=== PATIENT | female | born 2000 | race Hispanic/Latino ===

== ENCOUNTER 2018-01-06 00:41 | Day surgery (SDC) | payer OTHER ==
[2018-01-06 01:24] VITALS: BMI 26.9
[2018-01-06 01:25] VITALS: BP 110/58; TEMP 98.9
--- NOTE | 2018-01-06 02:08 | PDOC.LDHP ---
Labor and Delivery H&P Chief complaint: abdominal pain, other (N/V) HPI: 17 yo G1 @ 23.5 weeks by LMP c/w 20 wk US here with complaint of n/v for 1 week. She states that for the past 48 hours she has had multiple episodes of vomiting which became progressively worse over the past 24 hours. She has associated epigastric pain. She denies contractions, loss of fluid, vaginal bleeding, or decreased movement. has been uncomplicated to date. She denies symptoms such dizziness or heart palpitation. Current gestational age (weeks): 23 (23.5) Due date: 04/30/18 Dating criteria: last menstrual period Grav: 1 Current complications: none Current medications: pre- vitamins Social history: none - Physical Exam Vital signs reviewed and normal: yes General: NAD, resting Heart: RRR Lungs: CTAB Abdomen: gravid Extremeties: no edema FHT: category 1 [place] contractions every: none - OB Labs Blood type: unknown RH: unknown Antibody Screen: unknown HIV: unknown RPR: unknown HEPSAg: unknown 1 hour GCT: unknown GBS: unknown - Assessment Gastroenteritis - Plan -: Gastroenteritis, likely viral in etiology. Pt does not appear to be dehydrated given normal vitals. Will get BMP to verify pt does not have DEBORAH. Continuous monitoring while labs are pending. Plan to give trial of oral hydration with zofran PRN to help control n/v. <Julius Beltran - Last Filed: 01/06/18 02:04> <Parth Rae - Last Filed: 01/06/18 07:06> Allergies/Adverse Reactions: Allergies Allergy/AdvReac Type Severity Reaction Status Date / Time No Known Allergies Allergy Verified 01/06/18 01:22 Attending Addendum - Attending Addendum Date/Time: 01/06/18 0703 I personally evaluated the patient and discussed the management with Dr. beltran I agree with the History, Examination, Assessment and Plan documented above with any addition or exceptions noted below. <Parth Rae - Last Filed: 01/06/18 07:06> Review of Systems - Review of Systems Constitutional: reports: no symptoms reported EENTM: reports: no symptoms reported Respiratory: reports: no symptoms reported Cardiology: reports: no symptoms reported Gastrointestinal/Abdominal: reports: vomiting Genitourinary Symptoms: reports: no symptoms reported Musculoskeletal: reports: no symptoms reported Skin: reports: no symptoms reported Hematologic/Lymphatic: reports: no symptoms reported <Parth Rae - Last Filed: 01/06/18 07:06>
[2018-01-06] MEDS ORDERED: Ondansetron ODT 8 MG TAB PO PRN (02:11)
[2018-01-06 03:53] LABS: Anion Gap 9 mmol/L (10-20); BUN (Urea Nitrogen) 7 mg/dL (8.4-21.0); Calc. Creatinine Clearance 157 mL/min (70-130); Calcium 8.5 mg/dL (7.8-10.44); Carbon Dioxide 25 mmol/L (22-29); Chloride 103 mmol/L (98-107); Estimated GFR-MDRD Greater than 90; Glucose 86 mg/dL (70-105); Potassium 3.2 mmol/L (3.5-5.1); Sodium 134 mmol/L (136-145)
== END 2018-01-06 04:15 | disposition home or self-care (01) ==
LOC: L&D/OP 00:41
PROVIDERS: ATTEND Student in an Organized Health Care Education/Training Program
DX: O21.2 Late vomiting of pregnancy (principal); O99.89 Other specified diseases and conditions complicating pregnancy, childbirth and the puerperium; R10.13 Epigastric pain; O99.612 Diseases of the digestive system complicating pregnancy, second trimester; K52.9 Noninfective gastroenteritis and colitis, unspecified; Z3A.23 23 weeks gestation of pregnancy; Z79.899 Other long term (current) drug therapy
CPT/HCPCS: 36415; 80048; 99282

== ENCOUNTER 2018-05-01 20:49 | Inpatient (IN) | payer OTHER ==
[~2018-05-01 20:49] MED LIST: Bupivacaine/Epinephrine 0.25% 30 ML VIAL ONE
[2018-05-01 21:35] VITALS: BMI 31.9
--- NOTE | 2018-05-01 21:57 | PDOC.FPROB ---
Addendum entered and electronically signed by Randy Caballero MD 05/01/18 23:46 : Pt had SVE again at 1115 with some change at 4.5/80/-3. Pt reports increased pain with contractions. Strip Cat 1. A/P- will recheck cervix in 1.5 hours and admit if showing continued change. Will DC home with PCP f/u if not. -PO hydration -fentanyl one for pain Original Note: FMR OB H&P: HPI - History of Present Illness Chief Complaint: contractions History of Present Illness: 17yo G1 at 39.4 weeks by LMP confirmed by 1st trimester US, presenting for contractions that started yesterday evening q10min. They have since increased in severity and are every 6min per patient. No vaginal bleeding/discharge/loss of fluid. Reports good mvt. No headaches or changes in vision. Primary Care Physician: Clinic- Isela Cortez MD FMR OB H&P: Current - Care : 1 Para: 0 Gestational age: 39.4 Due date: 05/04/2018 Dating Criteria: LMP confirmed by 1st trimester US - OB Labs Blood type: A RH: negative Antibody Screen: negative HIV: negative RPR: negative HepBsAg: negative Rubella: immune Chlamydia: positive (s/p azithromycine and negative Cure test) GBS: unknown - First Trimester Ultrasound First trimester: normal, confirmed dating by LMP FMR OB H&P: History - Past Medical History PMH: none - OB History OB History: G1 - Surgical History Sx History: none - Social History Social History: Smoking- denies, EtOH- denies, drugs- denies - Family History Family History: none FMR OB H&P: Medications - Current Home Medications: Medication Instructions Recorded Confirmed Type Vit37/Iron/Folic Acid 1 tablet PO DAILY 01/06/18 05/01/18 History [[place] Chewable Tablet] Allergies/Adverse Reactions: Allergies Allergy/AdvReac Type Severity Reaction Status Date / Time No Known Allergies Allergy Verified 05/01/18 21:33 FMR OB H&P: ROS - Review of Systems General: denies: fever/chills Eyes: denies: eye pain, vision changes, floaters ENT: denies: nasal congestion Cardiovascular: denies: chest pain, palpitation, other Respiratory: denies: cough Gastrointestinal: reports: cramping. denies: abdominal pain Genitourinary (Female): reports: contractions. denies: vaginal discharge, vaginal bleeding Musculoskeletal: denies: tenderness, decrease range of motion Neurologic: denies: syncope FMR OB H&P: Vital Signs - Maternal Vital signs: Vital Signs - First Documented Temp Pulse Resp BP 98.9 F 89 20 110/68 05/01/18 21:31 05/01/18 21:31 05/01/18 21:31 05/01/18 21:31 - Heart Tones Baseline: 150 Variability: moderate Acceleration: present Deceleration: absent Category: category 1 [place] contractions every: 5-8min FMR OB H&P: Physical Exam - Physical Exam General: NAD, awake, alert and oriented HEENT: normocephalic and atraumatic, EOMI, MMM Chest: non-tender to palpation Heart: RRR, normal S1/S2 General: CTAB, good air movement Abdomen: gravid Neurological: sensation to pain,touch and proprioception grossly normal Skin: no rash, good tugor Lymphatic: no unusual bruising or bleeding, no purpura Psychiatric: intact recent and remote memory, good judgement and insight - Pelvic Exam SVE: 3/80/-3 FMR OB H&P: A/P - Problem List (1) Uterine contractions during Current Visit: Yes Status: Acute Code(s): O62.2 - OTHER UTERINE INERTIA (2) and not yet delivered in third trimester Current Visit: Yes Status: Acute Code(s): Z34.93 - ENCNTR FOR SUPRVSN OF NORMAL PREG, UNSP, THIRD TRIMESTER Disposition: 17yo G1 at 39.4 weeks EGA presenting with contractions with SVE at 3/80/-3. -will PO hydrate -recheck cervix in 2 hours for change, will admit if change, if no change will discharge with PCP f/u Attending Addendum - Attending Addendum Date/Time: 05/02/1818 I personally evaluated the patient and discussed the management with Dr. Caballero. I agree with the History, Examination, Assessment and Plan documented above.
[2018-05-01] MEDS ORDERED: diphenhydrAMINE 25 MG CAP PO SCH (23:00)
[2018-05-01] MEDS ORDERED: Acetaminophen 325 MG TAB PO SCH (23:00)
[2018-05-01] MEDS ORDERED: Fentanyl 100 MCG/2 ML VIAL SLOW IVP SCH (23:46)
[2018-05-02] MEDS ORDERED: Ondansetron HCl/PF 4 MG/2 ML Vial IVP PRN ×3 (01:54→04:49)
[2018-05-02] MEDS ORDERED: Promethazine HCl 25 MG/ML VIAL IM PRN ×3 (01:54→04:49)
[2018-05-02] MEDS ORDERED: Butorphanol Tartrate 1 MG/ML VIAL SLOW IVP PRN (01:58)
[2018-05-02 02:05] LABS: Hemoglobin 12.7 g/dL (12.0-16.0); Mean Corpuscular HGB CONC 33.7 g/dL (32.0-36.0); Mean Corpuscular Hemoglobin 28.2 pg (25.0-35.0); Mean Corpuscular Volume 83.9 fL (78.0-98.0); Mean Platelet Volume 9.8 fL (7.4-10.4); Platelet Count 244 thou/uL (130-400); RBC Distribution Width 15.1 % (11.5-14.5); Red Blood Cell (RBC) Count 4.49 mill/uL (4.00-5.20); White Blood Cell (WBC) Count 11.8 thou/uL (4.8-10.8)
[2018-05-02] MEDS ORDERED: DISCONTINUE ALL PREVIOUS NARCOTICS FS SCH (02:15)
[2018-05-02] MEDS ORDERED: Bupivacaine 0.5% 20 ML, fentaNYL Citrate/PF 400 MCG in Sodium Chloride 0.9% 72 ML EPIDURAL SCH (02:15)
[2018-05-02] MEDS: Lactated Ringer's 1,000 ML IV SCH ×3 (02:16→19:27)
--- NOTE | 2018-05-02 02:18 | PDOC.LDPN ---
Labor & Delivery Progress Note - Subjective Subjective: painful contractions - Objective Vital signs reviewed and normal: yes General: NAD, resting Dilation: 5 Effacement: 90% Station: -3 FHT: category 1 Resuscitative measures: maternal IV fluids - Assessment (1) Uterine contractions during Code(s): O62.2 - OTHER UTERINE INERTIA Current Visit: Yes Status: Acute (2) and not yet delivered in third trimester Code(s): Z34.93 - ENCNTR FOR SUPRVSN OF NORMAL PREG, UNSP, THIRD TRIMESTER Current Visit: Yes Status: Acute Plan: continue plan of care -: pt comfortable with some pain with contractions. Stadol prn for pain. Pt wishes to have epidural and has seen the educational video -cervical checks q2hr -IV LR 125/hr -stadol prn
[2018-05-02 02:58] LABS: HBSAg Index 0.14 S/CO (0-0.99); Hep B Surf Ag Non-Reactive S/CO (NonReactive)
[2018-05-02] MEDS ORDERED: Naloxone HCl 0.4 mg/ml Vial IVP PRN ×4 (04:48→04:49)
[2018-05-02] MEDS ORDERED: Acetaminophen 325 MG TAB PO PRN ×2 (04:48→04:49)
[2018-05-02] MEDS ORDERED: diphenhydrAMINE 50 MG/ML VIAL IVP PRN ×2 (04:48→04:49)
[2018-05-02] MEDS ORDERED: Eucerin (Mineral Oil/Petrolatum,White) 30 gm Jar TOP PRN ×2 (04:48→04:49)
[2018-05-02] MEDS ORDERED: ePHEDrine/0.9% NaCl/PF SYRINGE 50 mg/10 ml SLOW IVP PRN ×2 (04:48→04:49)
[2018-05-02] MEDS ORDERED: Lactated Ringer's 500 ML IV PRN ×2 (04:48→04:49)
[2018-05-02] MEDS ORDERED: fentaNYL Citrate/PF 400 MCG, Bupivacaine 0.5% 20 ML in Sodium Chloride 0.9% 72 ML EPIDURAL SCH (05:00)
[2018-05-02] MEDS ORDERED: Communication Order-Pharmacy FS SCH ×2 (05:00)
[2018-05-02 05:02] LABS: Syphilis Antibody Nonreactive (Nonreactive); Syphilis Antibody Index 0.06 S/CO (<1.00 Non-Reactive)
--- NOTE | 2018-05-02 06:11 | PDOC.LDPN ---
Labor & Delivery Progress Note - Subjective Subjective: comfortable (Pt has epidural in place) - Objective Vital signs reviewed and normal: yes General: NAD SVE: 5/80/-3 per nurse @ 0451 FHT: category 1 [place] contractions every: 2-4 min - Assessment (1) Term Code(s): Z34.80 - ENCOUNTER FOR SUPRVSN OF NORMAL , UNSP TRIMESTER Current Visit: Yes Status: Acute Plan: continue plan of care
--- NOTE | 2018-05-02 07:28 | PDOC.LDPN ---
Labor & Delivery Progress Note - Subjective Subjective: comfortable - Objective Vital signs reviewed and normal: yes General: NAD, resting Uterine fundus: non tender SVE: @ [address] Cortez Dilation: 6 Effacement: 90% Station: -3 FHT: category 1, variability present [place] contractions every: 2-4 minutes - Assessment (1) and not yet delivered in third trimester Code(s): Z34.93 - ENCNTR FOR SUPRVSN OF NORMAL PREG, UNSP, THIRD TRIMESTER Current Visit: Yes Status: Acute Comment: 17 y/o @ 39.5 WGA here in labor SVE: /-3, bulging bag Ctx: q2-[address] -Will continue supportive care with no changes at this time -If pt doesn't make any further change by next cervical check will AROM Plan: continue plan of care
--- NOTE | 2018-05-02 09:11 | PDOC.EVN ---
Event Note - Event Note Event Note: 17 yo LAF G1 at 39 weeks admitted in labor. Comfortable with epidural in place. Last exam 6 cm. Fhts stable. Ucs q 2-4 min. Plan: watch progress, augment if needed.
--- NOTE | 2018-05-02 09:25 | PDOC.LDPN ---
Labor & Delivery Progress Note - Subjective Subjective: comfortable - Objective Vital signs reviewed and normal: yes General: NAD, resting Uterine fundus: palpable contractions SVE: @ [address] Cortez Dilation: 6.5 Effacement: 90% Station: -2 FHT: category 1, variability present [place] contractions every: 2-3 minutes AROM: clear fluid - Assessment (1) and not yet delivered in third trimester Code(s): Z34.93 - ENCNTR FOR SUPRVSN OF NORMAL PREG, UNSP, THIRD TRIMESTER Current Visit: Yes Status: Acute Comment: 17 y/o @ 39.5 WGA here in labor SVE: 6.5/90/-2, AROM Ctx: q2-[address] -Will continue supportive care -Will monitor contraction pattern over the next hour and consider pitocin at that time if needed. Plan: continue plan of care <Isela Cortez - Last Filed: 05/02/18 09:23> Attending Addendum - Attending Addendum Date/Time: 05/02/18 2010 I personally evaluated the patient and discussed the management with Dr. Cortez. I agree with the Assessment and Plan. <Yehuda Olivier - Last Filed: 05/02/18 13:39>
--- NOTE | 2018-05-02 10:43 | PDOC.LDPN ---
Labor & Delivery Progress Note - Subjective Subjective: comfortable, vaginal pressure - Objective Vital signs reviewed and normal: yes General: NAD Uterine fundus: palpable contractions SVE: @ [address] Cortez Dilation: 7 Effacement: 100% Station: 0 FHT: category 1, variability present [place] contractions every: 2-3 minutes IUPC placed: yes - Assessment (1) and not yet delivered in third trimester Code(s): Z34.93 - ENCNTR FOR SUPRVSN OF NORMAL PREG, UNSP, THIRD TRIMESTER Current Visit: Yes Status: Acute Comment: 17 y/o @ 39.5 WGA here in labor SVE: 7/100/0, IUPC placed Ctx: q2-[address] -Will start pitocin and titrate to adequate contractions Plan: pitocin for augmentation <Isela Cortez - Last Filed: 05/02/18 10:41> Attending Addendum - Attending Addendum Date/Time: 05/02/18 1340 I personally evaluated the patient and discussed the management with Dr. Cortez. I agree with the Assessment and Plan. <Yehuda Olivier - Last Filed: 05/02/18 13:41>
[2018-05-02] MEDS ORDERED: NS w/ Oxytocin 10 units 500 ML IV SCH (10:45)
[2018-05-02] MEDS ORDERED: NS w/ Oxytocin 10 units 500 ML ONE (10:48)
[2018-05-02] MEDS ORDERED: NS / Oxytocin 40 units/1000ml 1,000 ML ONE (11:50)
[2018-05-02] MEDS ORDERED: Lidocaine 1% (PF) 30 ML VIAL ONE (11:51)
[2018-05-02] MEDS ORDERED: Milk Of Magnesia 30 ML UDCUP PO PRN (12:46)
[2018-05-02] MEDS ORDERED: NS / Oxytocin 40 units/1000ml 1,000 ML IV SCH (12:46)
[2018-05-02] MEDS ORDERED: Bisacodyl 10 MG SUPP PR PRN (12:46)
[2018-05-02] MEDS ORDERED: Lanolin Ointment 7 GM TUBE TOP PRN (12:46)
[2018-05-02] MEDS ORDERED: Adacel (T-DAP) 0.5 ML VIAL IM ONE (12:46)
[2018-05-02] MEDS ORDERED: Benzocaine/Menthol 20-0.5% 60 ML CAN TOP PRN (12:46)
--- NOTE | 2018-05-02 13:38 | PDOC.EVN ---
Event Note - Event Note Event Note: Present earlier for over 2*extension by Dr. Cortez. Baby vigorous at delivery, doing well. Extension repaired in layers. To recover in L&D.
--- NOTE | 2018-05-02 13:59 | PDOC.OPDEL ---
OB Operative/Delivery Note Delivery Dr/Surgeon: Dr. Cortez with Dr. Olivier attending Pre-Delivery Diagnosis: active labor Procedure/Post Delivery Dx: spontaneous vaginal delivery Weeks gestation: 39 (39w5d) Anesthesia: epidural - Findings A Sex: female Weight: 3.635 kg - 1 min: 8 - 5 min: 9 - Additional Findings/Plan Placenta delivered: spontaneous Repaired Obstetrical Laceration: 2nd degree Compilations/Other Findings: This is a 17 year old female @ 39.5wks who delivered a viable F infant at 1207 on 05/02/18. Following an uneventful antepartum course, a vigorous female was delivered over an intact perineum in the left occipitoanterior position. Anterior Shoulder and then remainder of the body delivered. No nuchal cord. The head was held down and mouth and nares were bulb suctioned. Cord clamped and cut and cord blood collected. Placenta delivered intact with a 3 vessel cord noted. Fundal massage was performed and the fundus was firm. The cervix and vagina were inspected and 2nd degree perineal laceration noted and repaired with 3-0 Chromic in the usual fashion with good approximation and hemostasis after a local anesthetic 1% lidocaine was injected at site. went to nursery in good condition for routine care. Apgars were 8/9 at 1 & 5 minutes, respectively. Patient tolerated delivery well and went to after routine recovery/care. QBL immediately after delivery: 475 mL Post delivery plan: routine recovery <Isela Cortez - Last Filed: 05/02/18 14:15> Attending Addendum - Attending Addendum Date/Time: 05/02/18 4980 I personally evaluated the patient with Dr. cortez. I agree with Examination, Assessment and Plan. <Yehuda Olivier - Last Filed: 05/02/18 15:49>
[2018-05-02] MEDS: Ibuprofen 800 MG TAB PO SCH ×2 (14:00→22:33)
[2018-05-02] MEDS: Ferrous Sulfate 325 MG TAB PO SCH (16:36)
[2018-05-02] MEDS: Docusate Calcium (SURFAK) 240 MG CAP PO SCH (22:33)
[2018-05-03] MEDS: Lactated Ringer's 1,000 ML IV SCH (04:43)
[2018-05-03 05:51] LABS: Hemoglobin 9.7 g/dL (12.0-16.0); Mean Corpuscular HGB CONC 32.8 g/dL (32.0-36.0); Mean Corpuscular Volume 85.3 fL (78.0-98.0); Mean Platelet Volume 9.1 fL (7.4-10.4); Platelet Count 178 thou/uL (130-400); Red Blood Cell (RBC) Count 3.46 mill/uL (4.00-5.20); White Blood Cell (WBC) Count 11.1 thou/uL (4.8-10.8)
[2018-05-03] MEDS: Ibuprofen 800 MG TAB PO SCH ×3 (06:05→21:22)
--- NOTE | 2018-05-03 06:36 | PDOC.PP ---
Post Progress Note Post Day #: 1 Subjective: 17 y/o ->1 delivered via @ 1207 on 05/02. Pt reports some mild abdominal cramping, but overall her pain is very well controlled. She endorses a small amount of vaginal bleeding, but says it has slowed down significantly. She endorses ambulation, voiding, and passing flatus. She has tolerated PO without any nausea or vomiting. She denies any lightheadedness, dizziness. She is breast feeding and having a little difficulty helping her baby latch, but once she has latched she is feeding without difficulty. PO intake tolerated: yes Flatus: yes Ambulation: yes Vital Signs (12 hours) Temp Pulse Resp BP Pulse Ox 05/03/18 04:31 98.4 F 66 18 109/55 L 100 05/03/18 00:25 98.4 F 71 18 97/57 L 98 05/02/18 20:28 98.2 F 85 18 121/58 L 97 Weight Weight 76.657 kg - Physical Examination General: NAD Cardiovascular: no m/r/g, RRR Respiratory: clear to auscultation bilaterally, non-labored breathing Abdominal: + bowel sounds, lochia (minimal), no distention, appropriately TTP Fundus firm & at: 2 cm below the umbilicus Neurological: no gross focal deficits Psychiatric: A&Ox3, normal affect Result Diagrams: 05/03/18 05:33 Additional Labs: Post Labs Blood Type A NEGATIVE 05/02/18 00:20 Hep Bs Antigen Non-Reactive S/CO (NonReactive) 05/02/18 00:20 (1) Term delivered Code(s): O80 - ENCOUNTER FOR FULL-TERM UNCOMPLICATED DELIVERY Status: Acute Comment: 17 y/o ->1 delivered via @ 1207 on 05/02. 2nd degree laceration s/p repair. -Continue routine post- care -Ferrous sulfate BID, docusate -Pain controlled with ibuprofen -Encourage breast feeding, will consult resource protection specialist for assistance -Continue PNV -Encourage ambulation (2) Rh negative, maternal Code(s): O09.899 - SUPERVISION OF OTHER HIGH RISK PREGNANCIES, UNSP TRIMESTER; Z67.91 - UNSPECIFIED BLOOD TYPE, RH NEGATIVE Status: Acute Qualifiers: Trimester: unspecified trimester Qualified Code(s): O09.899 - Supervision of other high risk pregnancies, unspecified trimester; Z67.91 - Unspecified blood type, Rh negative Comment: Pt Rh negative with Rh positive child. s/p rhogam at 28 weeks. -1 vial Rhogam given after delivery <Isela Cortez - Last Filed: 05/03/18 06:40> Vital Signs (12 hours) Temp Pulse Resp BP Pulse Ox 05/03/18 04:31 98.4 F 66 18 109/55 L 100 05/03/18 00:25 98.4 F 71 18 97/57 L 98 05/02/18 20:28 98.2 F 85 18 121/58 L 97 Weight Weight 169 lb Result Diagrams: 05/03/18 05:33 Additional Labs: Post Labs Blood Type A NEGATIVE 05/02/18 00:20 Hep Bs Antigen Non-Reactive S/CO (NonReactive) 05/02/18 00:20 <Parth Rae - Last Filed: 05/03/18 07:33> Attending Addendum - Attending Addendum Date/Time: 05/03/18 0733 I personally evaluated the patient and discussed the management with Dr. Cortez I agree with the History, Examination, Assessment and Plan documented above with any addition or exceptions noted below. <Parth Rae - Last Filed: 05/03/18 07:33>
[2018-05-03] MEDS: Docusate Calcium (SURFAK) 240 MG CAP PO SCH ×2 (08:54→21:22)
[2018-05-03] MEDS: Ferrous Sulfate 325 MG TAB PO SCH ×2 (08:54→19:12)
[2018-05-03] MEDS ORDERED: Prenatal Vitamin 1 TAB PO SCH (09:00)
[2018-05-04] MEDS: Ibuprofen 800 MG TAB PO SCH (06:02)
--- NOTE | 2018-05-04 07:08 | PDOC.PP ---
Post Progress Note Post Day #: 2 Subjective: 17 y/o -> delivered at 39.5 WGA via Patient doing well. She is tolerating PO, ambulating, voiding, and passing flatus without difficulty. She reports minimal abdominal pain, and mostly only when someone pushes on her abdomen. She reports that the vaginal bleeding has slowed down significantly and is just minimal at this point. She is breast feeding with some latching difficulties, but she says it is improving and she met with the security system sales consultant yesterday. She denies any other complaints at this time. PO intake tolerated: yes Flatus: yes Ambulation: yes Vital Signs (12 hours) Temp Pulse Resp BP Pulse Ox 05/03/18 21:20 98.1 F 83 16 113/64 99 Weight Weight 76.657 kg - Physical Examination General: NAD Cardiovascular: no m/r/g, RRR Respiratory: clear to auscultation bilaterally, non-labored breathing Abdominal: + bowel sounds, lochia (minimal), no distention, appropriately TTP Fundus firm & at: 3 cm below the umbilicus Neurological: no gross focal deficits Psychiatric: A&Ox3, normal affect Result Diagrams: 05/03/18 05:33 Additional Labs: Post Labs Blood Type A NEGATIVE 05/02/18 00:20 Hep Bs Antigen Non-Reactive S/CO (NonReactive) 05/02/18 00:20 (1) Term delivered Code(s): O80 - ENCOUNTER FOR FULL-TERM UNCOMPLICATED DELIVERY Status: Acute Comment: 17 y/o ->1 @ 39.5 WGA delivered via @ 1207 on 05/02. 2nd degree laceration s/p repair. -Ferrous sulfate BID, docusate -Pain controlled with ibuprofen -Encourage breast feeding -Continue PNV -Encourage ambulation (2) Rh negative, maternal Code(s): O09.899 - SUPERVISION OF OTHER HIGH RISK PREGNANCIES, UNSP TRIMESTER; Z67.91 - UNSPECIFIED BLOOD TYPE, RH NEGATIVE Status: Acute Qualifiers: Trimester: unspecified trimester Qualified Code(s): O09.899 - Supervision of other high risk pregnancies, unspecified trimester; Z67.91 - Unspecified blood type, Rh negative Comment: Pt Rh negative with Rh positive child. s/p rhogam at 28 weeks. -1 vial Rhogam given after delivery - Assessment/Plan d/c home today with f/u at Clinic in 2 weeks
[2018-05-04 11:23] VITALS: BP 117/68; TEMP 97.8
== END 2018-05-04 11:27 | disposition home or self-care (01) | DRG 775 ==
LOC: L&D/OP 20:49 → L&D 05-02 02:07 → 3SE 05-02 15:49
PROVIDERS: ADMIT Obstetrics & Gynecology; ATTEND Obstetrics & Gynecology
PROC: 10E0XZZ Delivery of Products of Conception, External Approach (ICD-10-PCS; principal; 2018-05-02)
PROC: 0KQM0ZZ Repair Perineum Muscle, Open Approach (ICD-10-PCS; 2018-05-02)
PROC: 10H07YZ Insertion of Other Device into Products of Conception, Via Natural or Artificial Opening (ICD-10-PCS; 2018-05-02)
DX: O70.1 Second degree perineal laceration during delivery (principal); Z37.0 Single live birth; Z3A.39 39 weeks gestation of pregnancy
CPT/HCPCS: 36415; 51702; 85027; 85461; 86780; 86850; 86900; 86901; 87340; 90384; 96372; 99285; J2001; J3010; J3490; J7050